=== PATIENT | female | born 1960 | race African-American/Black ===

== ENCOUNTER → 2020-03-05 | Outpatient (CLI) | payer OTHER ==
--- NOTE | 2020-03-05 10:36 | RAD ---
CERVICAL SPINE 2-3V DATE: 03/05/2020 12:00 AM INDICATION: NECK PAIN. COMPARISON: None. FINDINGS: The cervical spine is visualized to the level of the cervicothoracic junction on the lateral views. Bones/Alignment: No evidence of acute fracture. There is no listhesis. Normal alignment of the lateral masses of C1 on C2. Joints: Mild degenerative disc disease The facets are normally aligned. Soft tissue: No significant prevertebral soft tissue swelling. IMPRESSION: Mild cervical spondylosis Electronically signed by: Roni Stuart MD (03/05/2020 10:33 AM) [id number]
--- NOTE | 2020-03-05 10:39 | RAD ---
CHEST PA LATERAL INDICATION: COPD, RESPIRATORY FAILURE, SHORTNESS OF BREATH, ASTHMA COMPARISON STUDY: None. FINDINGS: Lungs: Normal lung volume. No pulmonary mass or consolidation. The tracheobronchial tree and hilar structures are normal. Pleura: No pleural effusion or pneumothorax. Heart and Mediastinum: The cardiomediastinal silhouette is normal. The great vessels of the thorax are normal. Bones and Soft Tissues: The bones and soft tissues are within normal limits. IMPRESSION: No acute cardiopulmonary process. Electronically signed by: Roni Stuart MD (03/05/2020 10:36 AM) [id number]
== END ==
LOC: RAD 09:18
PROVIDERS: ATTEND Anesthesiology Pain Medicine
DX: M47.812 Spondylosis without myelopathy or radiculopathy, cervical region (principal); J44.9 Chronic obstructive pulmonary disease, unspecified; J96.90 Respiratory failure, unspecified, unspecified whether with hypoxia or hypercapnia
CPT/HCPCS: 71046; 72040